=== PATIENT | female | born 1950 | race Caucasian/White ===

== ENCOUNTER 2021-10-05 06:56 | Day surgery (SDC) | payer OTHER ==
[~2021-10-05] VITALS: Ht 149.9 cm; Wt 68.0 kg
[~2021-10-05 06:56] MED LIST: CIPRO500 MG PO; LIPITOR40 MG PO; LOSARTAN-HCTZ1 EAC2 PO; METFORMIN HCL500 M3 PO; NEURONTIN800 MG PO; SINGULAIR 10MG10 MG PO; SYNTHROID50 MCG PO
== END 2021-10-05 13:15 | disposition home or self-care (01) ==
LOC: CIR.AMB 06:56
PROVIDERS: ATTEND Urology
DX: N39.3 Stress incontinence (female) (male) (principal); Z88.0 Allergy status to penicillin; Z88.8 Allergy status to other drugs, medicaments and biological substances; I10 Essential (primary) hypertension; E78.00 Pure hypercholesterolemia, unspecified; E11.9 Type 2 diabetes mellitus without complications; E03.9 Hypothyroidism, unspecified; G62.9 Polyneuropathy, unspecified; M19.90 Unspecified osteoarthritis, unspecified site; Z79.84 Long term (current) use of oral hypoglycemic drugs; Z20.822 Contact with and (suspected) exposure to COVID-19
CPT/HCPCS: 57288; C1771

== ENCOUNTER 2024-05-21 05:08 | Day surgery (SDC) | payer OTHER ==
[2024-05-13 08:12] VITALS: BP 136/73
[2024-05-13 08:27] LABS: HEMATOCRIT 36.3 % (36.0-45.00); HEMOGLOBIN 12.3 g/dL (12.0-15.00); MEAN CORPUSCULAR HEMOGLOBIN 26.4 pg (27.00-32.0); MEAN CORPUSCULAR HGB CONC 33.8 g/dl (32.0-36.0); PLATELET COUNT 328 K/uL (150-450); RED BLOOD COUNT 4.66 M/uL (4.00-6.00); RED CELL DISTRIBUTION WIDTH 14.8 % (11.5-14.5)
[2024-05-13 08:57] LABS: PH,URINE 7.5 (5.0-8.0); URINE APPEARANCE Clear; URINE BILIRRUBIN Negative (NEGATIVE); URINE BLOOD Negative; URINE COLOR Yellow; URINE GLUCOSE Negative (NEGATIVE); URINE KETONE Negative (NEGATIVE); URINE LEUKOCYTE Negative; URINE NITRATE Negative; URINE PROTEIN Negative (NEGATIVE); URINE UROBILINOGEN 0.2 E.U./dl
[2024-05-13 09:02] LABS: INR 0.97; PARTIAL THROMBOPLASTIN TIME 25.6 SECONDS (22.0-34.0); PROTHROMBIN TIME 10.6 SECONDS (9.0-11.5)
[2024-05-13 09:07] LABS: URINE BACTERIA 74.5 uL (0.0-1933); URINE EPITHELIAL CELLS 1.8 uL (0.0-38.8); URINE WBC 3.4 uL (0.0-23.2)
[2024-05-13 09:29] LABS: ALBUMIN 3.8 gm/dL (3.4-5.0); BILIRUBIN TOTAL 0.72 mg/dL (0.3-1.2); CALCIUM 9.3 mg/dL (8.5-10.1); CREATININE SERUM 0.64 mg/dL (0.55-1.02); GFR 91.47; GLOBULINA 3.6 G/DL (2.4-3.5); POTASSIUM 4.44 mEq/L (3.5-5.1); TOTAL PROTEIN 7.4 gm/dL (6.4-8.2)
[~2024-05-21] VITALS: Ht 152.4 cm; Wt 68.0 kg
[~2024-05-21 05:08] MED LIST changes: +CATAFLAN; +PROTONIX40 MG PO; +VITAMIN D
[2024-05-21] MEDS ORDERED: ONDANSETRON HCL 2 MG/ML VIAL IV ONE (08:30)
[2024-05-21] MEDS ORDERED: KETOROLAC TROMETHAMINE 30 MG VIAL IV ONE (08:30)
[2024-05-21] MEDS ORDERED: hydrALAZINE HCL 20 MG VIAL IV ONE (12:15)
[2024-05-23] MEDS ORDERED: CHLORHEXIDINE GLUCONATE 120 ML BOTTLE TOP ONE (09:00)
[2024-05-23] MEDS ORDERED: POVIDONE-IODINE 118 ML BOTT TOP ONE (09:00)
== END 2024-05-21 13:05 | disposition home or self-care (01) ==
LOC: CIR.AMB 05:08
PROVIDERS: ATTEND Obstetrics & Gynecology
DX: N95.0 Postmenopausal bleeding (principal); Z88.1 Allergy status to other antibiotic agents; Z88.0 Allergy status to penicillin; I10 Essential (primary) hypertension; E78.00 Pure hypercholesterolemia, unspecified; K21.9 Gastro-esophageal reflux disease without esophagitis; M19.90 Unspecified osteoarthritis, unspecified site; E03.8 Other specified hypothyroidism